=== PATIENT | male | born 1960 | race Caucasian/White ===

== ENCOUNTER 2018-12-24 08:11 | Outpatient (CLI) | payer BC ==
--- NOTE | 2018-12-24 11:57 | MRI ---
MRI OF LUMBAR SPINE PERFORMED WITHOUT CONTRAST ENHANCEMENT: HISTORY: Acute back pain. FINDINGS: Vertebral bodies are normal in height. There are generalized disk desiccation changes present. Ther e is moderate disk narrowing at the T12-L1 and L2-3 levels. There is mild waviness to the nerve root s with some minimal clumping. This could indicate some arachnoiditis changes. There is no nodularit y to the nerve roots associated with this. It is a somewhat equivocal finding. Typically, arachnoid itis should have some underlying cause like previous surgery, stenosis, or other reasons for nerve ro ot irritation. Clinically correlation would be recommended. There is no significant periaortic hawk opathy. The visualized portions of the kidneys are normal. T12-L1: Unremarkable. L1-2: Degenerative facet changes without canal or foraminal stenosis. L2-3: Degenerative facet changes without any significant canal or foraminal narrowing. L3-4: There is a disk bulge. There are facet hypertrophic changes, but no canal or foraminal narro wing. L4-5: Mild disk bulge is also present at this level. Degenerative facet changes without significant canal or foraminal stenosis. L5-S1: Moderate degenerative facet changes without significant canal or foraminal narrowing. IMPRESSION: 1. Mild waviness and slightly clumping to the nerve roots as discussed above. I cannot exclude this as some mild arachnoiditis-type change. Clinical correlation recommended. 2. Degenerative change along the course of the spine mainly related to degenerative facet changes. No signs of canal or foraminal stenosis. POS: [facility]
== END 2018-12-24 08:12 | disposition home or self-care (01) ==
LOC: BICMRI 08:11
PROVIDERS: ATTEND Student in an Organized Health Care Education/Training Program
DX: M43.16 Spondylolisthesis, lumbar region (principal); M54.5 Low back pain; M47.816 Spondylosis without myelopathy or radiculopathy, lumbar region
CPT/HCPCS: 72148

== ENCOUNTER 2019-02-14 10:39 | Outpatient (CLI) | payer BC ==
[2019-02-14 11:55] LABS: Hemoglobin 14.4 g/dL (14.0-18.0); Mean Corpuscular HGB CONC 35.1 g/dL (32.0-36.0); Mean Corpuscular Hemoglobin 32.9 pg (27.0-31.0); Mean Corpuscular Volume 93.9 fL (78.0-98.0); Mean Platelet Volume 6.1 fL (7.4-10.4); Platelet Count 200 thou/uL (130-400); RBC Distribution Width 12.6 % (11.5-14.5); Red Blood Cell (RBC) Count 4.38 mill/uL (4.70-6.10); White Blood Cell (WBC) Count 7.6 thou/uL (4.8-10.8)
[2019-02-14 12:00] LABS: PTT 31.3 SEC (22.9-36.1); Prothrombin Time 13.1 SEC (12.0-14.7)
[2019-02-14 12:01] LABS: Bilirubin Negative (Negative); Blood, Urine Negative (Negative); Clarity CLEAR (Clear); Glucose, Urine (Dipstick) Negative (Negative); Leukocyte Negative (Negative); Nitrite Negative (Negative); Protein, Urine (Dipstick) Negative (Neg-Trace); Specific Gravity, Urine 1.023 (1.002-1.036); Urobilinogen 0.2 mg/dL (0.2-1.0)
[2019-02-14 12:03] LABS: Bacteria/HPF None Seen HPF (None Seen); Hyaline Casts/LPF 0-3 HYALINE CAST LPF (0-3 Hyaline); RBC/HPF 0-3 HPF (0-3); Squamous Epithelial None Seen HPF (0-3); WBC/HPF 0-3 HPF (0-3)
[2019-02-14 12:18] LABS: Anion Gap 12 mmol/L (10-20); BUN (Urea Nitrogen) 28 mg/dL (8.4-25.7); Calc. Creatinine Clearance 0 mL/min (70-130); Calcium 9.7 mg/dL (7.8-10.44); Carbon Dioxide 23 mmol/L (22-29); Chloride 107 mmol/L (98-107); Estimated GFR-MDRD 83; Glucose 108 mg/dL (70-105); Potassium 4.3 mmol/L (3.5-5.1); Sodium 138 mmol/L (136-145)
== END 2019-02-14 10:40 | disposition home or self-care (01) ==
LOC: LABBT 10:39
PROVIDERS: ATTEND Urology
DX: Z01.818 Encounter for other preprocedural examination (principal); Z12.5 Encounter for screening for malignant neoplasm of prostate; N20.0 Calculus of kidney; N40.1 Benign prostatic hyperplasia with lower urinary tract symptoms; R39.12 Poor urinary stream
CPT/HCPCS: 80048; 81001; 85027; 85610; 85730; 87086; 93005; 93010

== ENCOUNTER 2019-02-21 07:36 | Day surgery (SDC) | payer BC ==
[2019-02-14 10:59] VITALS: BMI 25.8
[2019-02-21] MEDS ORDERED: Midazolam HCl 2 mg/2 ml Vial ONE ×2 (11:40→11:49)
[2019-02-21] MEDS ORDERED: Fentanyl 100 MCG/2 ML VIAL ONE (11:40)
[2019-02-21] MEDS ORDERED: Ketamine 50 MG/ML (10ML VIAL) ONE (11:40)
[2019-02-21] MEDS ORDERED: Propofol 500 MG/50 ML VIAL ONE (11:41)
[2019-02-21] MEDS ORDERED: ePHEDrine/0.9% NaCl/PF SYRINGE 50 mg/10 ml ONE (11:41)
[2019-02-21] MEDS ORDERED: Levofloxacin 500 mg/D5W 100 ml Premix Bag ONE (11:48)
--- NOTE | 2019-02-21 14:38 | OP ---
DATE OF PROCEDURE: 02/21/2019 SERVICE: Urology. PREOPERATIVE DIAGNOSIS: Benign prostatic hyperplasia with obstruction. POSTOPERATIVE DIAGNOSIS: Benign prostatic hyperplasia with obstruction. PROCEDURE PERFORMED: UroLift procedure. INDICATION FOR PROCEDURE: Cristian is a 58-year-old white male, who presented with significant urinary complaints on cystoscopy. He was found to have a very small prostate, but with a very narrow bladder neck. He responded significantly to Flomax. He does not want to be on medication indefinitely and wished to undergo procedural based treatments. We discussed UroLift, which he has agreed to after risks and benefits were discussed. DESCRIPTION OF PROCEDURE: After identification of armband and verification of consent, the patient was brought back to the operating room, where he underwent total intravenous anesthesia. He was left in the dorsal lithotomy position and prepped and draped in usual sterile fashion. After appropriate time-out, a lubricated 21-Belizean rigid cystoscope was introduced per urethra into the bladder. The prostate was evaluated and found to be extremely narrow at the bladder neck, but not hypertrophic. The visual obturator was removed and the UroLift device brought in. First implant was placed at the right lateral aspect of the prostate about midway between the verumontanum and the bladder neck. Given how short the prostate was, we could not get any closer to the bladder neck without risking actual bladder injury. I dropped my hand and gave about 20 to 30 degrees of compression. The first fire did result in a bone strike with complete pull through of the Nitinol tab. As a result, we had to discard that UroLift and bring in a new implant. The same method was used to the second implant in the same location; however, left compression was performed, which resulted in a good seating of the tab and good compression of the prostate. This was repeated on the opposite side in the same fashion, taking care to avoid a bone strike on that side, which did not happen. Upon completion, the prostate appeared wide open. I felt 2 implants were sufficient as the prostate did appear wide open and there was not really significant amount of room to put any additional implants in. There was a moderate amount of bleeding, but no severe hemorrhage. The cystoscope was then removed. An 18-Belizean Jacobsen catheter was placed into the patient's bladder via the penis with 10 mL of sterile water placed into the balloon. This was irrigated and found to be clear. The catheter was then hooked up to gravity drainage. The patient was then awakened and taken to Day Stay for recovery in stable condition. COMPLICATIONS: None. ESTIMATED BLOOD LOSS: Minimal. RETAINED TUBES AND DRAINS: 18-Belizean Jacobsen catheter. SPECIMENS: None. IMPLANTS USED: Two. DISPOSITION: The patient will stay in the recovery area for approximately an hour. We will make a decision of whether or not, he will undergo a void trial versus discharged with a catheter based on hematuria and voiding status. Job ID: [id number]
== END 2019-02-21 16:05 | disposition home or self-care (01) ==
LOC: SDC 07:36 → EEVIPCON 10:15 → SDC 16:05
PROVIDERS: ATTEND Urology
PROC: 0T7D8DZ Dilation of Urethra with Intraluminal Device, Via Natural or Artificial Opening Endoscopic (ICD-10-PCS; principal; 2019-02-21)
DX: N40.1 Benign prostatic hyperplasia with lower urinary tract symptoms (principal); R39.12 Poor urinary stream; F17.290 Nicotine dependence, other tobacco product, uncomplicated; Z79.52 Long term (current) use of systemic steroids; Z79.899 Other long term (current) drug therapy; Z98.890 Other specified postprocedural states
CPT/HCPCS: C1889; J1956; J2250; J2704; J3010

== ENCOUNTER 2019-10-10 09:02 | Outpatient (CLI) | payer BC ==
--- NOTE | 2019-10-10 11:39 | MRI ---
MRI ABDOMEN WITHOUT AND WITH CONTRAST: Date: 10/10/2019 COMPARISON: MRI abdomen dated 11/27/12. HISTORY: Hepatic lesions seen on prior MRI. TECHNIQUE: Multiplanar, multisequence MR images were obtained of the abdomen without and with IV contrast. FINDINGS: There is a lobulated mass in the inferior right lobe of the liver measuring 4.1 cm in size. This mass demonstrates peripheral puddling and centripetal filling consistent with hemangioma and is stable co mpared to the prior exam. There is a smaller, 8 mm, mass seen on image 25 of 64 in the posterior aspe ct of the right lobe of the liver. On the postcontrast images, this demonstrates fill-in and also lik muriel represents a small hemangioma. This is also stable in size compared to the prior examination. The re has been interval development of two small non nonenhancing foci of high T2 signal measuring up to 1.8 cm in size which represent cysts in the right lobe of the liver adjacent to the larger hemangiom a. No other liver lesions are seen. The gallbladder, kidneys, adrenal glands, spleen, and pancreas are unremarkable. No abdominal adenopa thy is seen. No marrow signal abnormality is present. IMPRESSION: 1. Stable hepatic hemangiomas. 2. Hepatic cysts. POS: [facility]
[2019-10-10] MEDS ORDERED: Magnevist 469MG/ML 20 ML VIAL ONE (16:41)
== END 2019-10-10 09:03 | disposition home or self-care (01) ==
LOC: BICMRI 09:02
PROVIDERS: ATTEND Internal Medicine Gastroenterology
DX: K76.9 Liver disease, unspecified (principal); D18.03 Hemangioma of intra-abdominal structures; K76.89 Other specified diseases of liver; Z86.010 Personal history of colon polyps
CPT/HCPCS: 74183; A9579